=== PATIENT | male | born 1965 | race Caucasian/White ===

== ENCOUNTER → 2018-01-06 10:06 | Outpatient (CLI) | payer OTHER, SELFPAY ==
[2018-01-06 11:57] LABS: Add Manual Diff / Slide Review NO; Basophils Percent Auto 0.6 % (0-2); Hematocrit 44.7 % (41-53); Hemoglobin 15.4 g/dL (13.5-17.5); Lymphocytes Percent Auto 29.4 % (25-40); Mean Corpuscular HGB Conc 34.4 % (30-36); Mean Corpuscular Hemoglobin 30.9 PG (26-34); Mean Corpuscular Volume 89.9 fL (80-100); Neutrophils Absolute Auto 2800 /uL (3000-5900); Platelet Count 183 X10^3/uL (150-400); Red Blood Cell Count 4.98 X10^6/uL (4.5-5.9)
[2018-01-06 12:32] LABS: Alanine Aminotransferase 31 IU/L (21-72); Albumin 4.3 g/dL (3.5-5.0); Albumin Globulin Ratio 1.5 (1.0-2.8); Alkaline Phosphatase 76 U/L (38-126); Aspartate Aminotransferase 27 IU/L (17-59); BUN Creatinine Ratio 16.7 (6-22); Bilirubin Total 0.9 mg/dL (0.2-1.3); Blood Urea Nitrogen 15 mg/dL (9-20); Calcium 9.5 mg/dL (8.4-10.2); Carbon Dioxide 34 mmol/L (22-32); Chloride 100 mmol/L (98-107); Cholesterol 205 mg/dL (140-199); Estimated Glomerular Filt Rate > 60.0 mL/min (>60); Globulin 2.8 g/dL (1.7-4.1); Glucose 90 mg/dL (70-100); HDL Cholesterol 38 mg/dL (40-60); HEMOLYSIS < 15 (0-50); LDL Cholesterol Calculated 148 mg/dL (<100); Potassium 4.7 mmol/L (3.4-5.1); Sodium 143 mmol/L (137-145); Total Protein 7.1 g/dL (6.3-8.2); Triglycerides 94 mg/dL (35-150)
[2018-01-06 12:54] LABS: TSH w/ Reflex to FT4 2.05 uIU/mL (0.47-4.68)
== END ==
PROVIDERS: Family Provider Family Medicine; PCP Family Medicine; Visit Provider Family Medicine
DX: Z00.00 Encounter for general adult medical examination without abnormal findings (principal)
CPT/HCPCS: 36415; 80053; 80061; 84443; 85025

== ENCOUNTER → 2018-01-12 17:30 | Outpatient (CLI) | payer OTHER, SELFPAY | PROVIDERS: Family Provider Family Medicine; PCP Family Medicine; Visit Provider Family Medicine | DX: Z53.8 Procedure and treatment not carried out for other reasons (principal) ==

== ENCOUNTER 2018-03-16 12:57 | Day surgery (SDC) | payer OTHER, SELFPAY ==
--- NOTE | 2018-03-16 | PATH_ITS ---
[facility] Accession Number: [id number] . 01 Material submitted: . SIGMOID POLYP AT 25CM . 02 Diagnosis: Sigmoid Colon Polyp at 25 cm: Colonic mucosa with prominent benign lymphoid aggregate. Negative for serrated lesion, dysplasia or malignancy. Additional step sections examined. MRV/03/21/2018 . 02 Electronically signed: . Trip Tejada MD, PhD, Pathologist NPI- [id number] . 01 Gross description: . SIGMOID POLYP AT 25CM: Received in formalin are multiple fragment(s) of mendenhall, soft tissue measuring 0.1 x 0.1 x 0.1 cm in aggregate submitted entirely in 1 cassette(s) /CKI /CKI . 02 Pathologist provided ICD-10: K63.5 . 02 CPT . 571775 Specimen Comment: A duplicate report has been generated due to demographic updates. Performed at: 01 [facility] [address] [facility], [place], [place] [id number] MD Jeremiah Louis MD Phone: [phone] Performed at: [facility] [address] [place], [place] [id number] MD Clifford Espino MD Phone: [phone]
[2018-03-16 13:42] VITALS: BP 120/75; PULSE 63; RESP 16; TEMP 36.8; O2SAT 96; BMI 26.6
[2018-03-16] MEDS: SODIUM CHLORIDE 0.9% 1,000 ML 200 ML IV (13:55)
--- NOTE | 2018-03-16 14:33 | PM.HP.1 ---
History of Present Illness Date Patient Seen: 03/16/18 Time Patient Seen: 14:33 Chief complaint: colonoscopy [id number] Narrative: 52-year-old male who presents for colorectal screening. He has no history of any such examination. On further history today denies any gastrointestinal symptoms. No nausea, vomiting, abdominal pain, loss of appetite, unexplained weight loss, change in bowel habits, diarrhea, constipation, melena, hematochezia, or bright red blood per rectum. Patient History Medical History Anxiety (Chronic ~1984) GERD (gastroesophageal reflux disease) (Chronic ~1989) History of recurrent ear infection (Chronic ~2007) Recurrent sinusitis (Chronic ~2007) Chicken pox (Resolved ~1984) Surgical History Anesthesia (Resolved) History of tooth extraction (Resolved ~2007) Surgical procedure planned (Resolved ~1989) History of third molar tooth extraction (~1993) Status post arthroscopy (~2015) Status post arthroscopy (~2009) Family & Social History Family History: Reviewed 03/16/18 by Andrews Vo MD Social History: household members friend(s) Tobacco & Substance use: Smoking Status Never smoker Meds Home Medications Medication Instructions Recorded Confirmed Type duloxetine [Cymbalta] #0 11/08/16 History terbinafine HCl [Lamisil AT] 0 TOPICAL BID #24 gm 05/18/17 Rx Allergies Allergy/AdvReac Type Severity Reaction Status Date / Time No Known Drug Allergies Allergy Unverified 01/12/18 09:18 Review of Systems Review of Systems All systems reviewed & are unremarkable except as noted in HPI and below Exam Vital Signs (past 8 hours): - 03/16/18 13:42 Temperature 98.3 F Pulse Rate 63 Respiratory Rate 16 Blood Pressure 120/75 Pulse Oximetry 96 Oxygen Delivery Method Room Air Narrative Exam Narrative: Well-nourished well-developed male in no acute distress. Alert oriented x3 Sclera nonicteric Chest clear to auscultation bilaterally with regular rate and rhythm. No murmurs, gallops, rubs Abdomen is soft, nondistended, nontender Extremities show no clubbing, cyanosis, or edema Objective Labs Labs: No recent laboratory or radiographic studies for review Assessment & Plan Plan: Assessment/Plan Narrative: 52-year-old male who requires colorectal screening by age criteria. Colonoscopy is recommended. Technical details of the procedure were discussed. Risks, benefits, alternatives were explained. Risks including but not limited to sedation, aspiration, bleeding, pain, missed lesion, incomplete examination, need for further radiographic studies, colonic perforation, need for major abdominal surgery, and all attendant risks of major surgery were discussed in detail. All questions were answered to his satisfaction, and he voiced understanding. Consent was placed on the chart. We will proceed as above.
--- NOTE | 2018-03-16 14:36 | P.HP_ITS ---
History of Present Illness Date Patient Seen: 03/16/18 Time Patient Seen: 14:33 Chief complaint: colonoscopy [id number] Narrative: 52-year-old male who presents for colorectal screening. He has no history of any such examination. On further history today denies any gastrointestinal symptoms. No nausea, vomiting, abdominal pain, loss of appetite, unexplained weight loss, change in bowel habits, diarrhea, constipation, melena, hematochezia, or bright red blood per rectum. Patient History Medical History Anxiety (Chronic ~1984) GERD (gastroesophageal reflux disease) (Chronic ~1989) History of recurrent ear infection (Chronic ~2007) Recurrent sinusitis (Chronic ~2007) Chicken pox (Resolved ~1984) Surgical History Anesthesia (Resolved) History of tooth extraction (Resolved ~2007) Surgical procedure planned (Resolved ~1989) History of third molar tooth extraction (~1993) Status post arthroscopy (~2015) Status post arthroscopy (~2009) Family & Social History Family History: Reviewed 03/16/18 by Andrews Vo MD Social History: household members friend(s) Tobacco & Substance use: Smoking Status Never smoker Meds Home Medications Medication Instructions Recorded Confirmed Type duloxetine [Cymbalta] #0 11/08/16 History terbinafine HCl [Lamisil AT] 0 TOPICAL BID #24 gm 05/18/17 Rx Allergies Allergy/AdvReac Type Severity Reaction Status Date / Time No Known Drug Allergies Allergy Unverified 01/12/18 09:18 Review of Systems Review of Systems All systems reviewed & are unremarkable except as noted in HPI and below Exam Vital Signs (past 8 hours): - 03/16/18 13:42 Temperature 98.3 F Pulse Rate 63 Respiratory Rate 16 Blood Pressure 120/75 Pulse Oximetry 96 Oxygen Delivery Method Room Air Narrative Exam Narrative: Well-nourished well-developed male in no acute distress. Alert oriented x3 Sclera nonicteric Chest clear to auscultation bilaterally with regular rate and rhythm. No murmurs , gallops, rubs Abdomen is soft, nondistended, nontender Extremities show no clubbing, cyanosis, or edema Objective Labs Labs: No recent laboratory or radiographic studies for review Assessment & Plan Plan: Assessment/Plan Narrative: 52-year-old male who requires colorectal screening by age criteria. Colonoscopy is recommended. Technical details of the procedure were discussed. Risks, benefits, alternatives were explained. Risks including but not limited to sedation, aspiration, bleeding, pain, missed lesion, incomplete examination, need for further radiographic studies, colonic perforation, need for major abdominal surgery, and all attendant risks of major surgery were discussed in detail. All questions were answered to his satisfaction, and he voiced understanding. Consent was placed on the chart. We will proceed as above.
--- NOTE | 2018-03-16 14:36 | PM.PREOP ---
Pre-operative Note Interval Note Pre-op Check: Yes History & Physical Reviewed by Physician, Yes Exam Performed and Yes History & Physical exam performed today by Physician Changes: No H&P completed within 30 days and has changed as indicated here:: Patient seen and examined today. History and physical examination documented and placed on the chart today. Proceed with colonoscopy today as planned. ASA Class (for procedural sedation): I
[2018-03-16] MEDS: MIDAZOLAM 5 MG/5 ML VIAL IV (14:57)
[2018-03-16] MEDS: fentaNYL 250 MCG/5 ML INJ IV (14:58)
--- NOTE | 2018-03-16 15:00 | PM.OP.ENDO ---
Operative Date/Time/Diagnoses Date of procedure: 03/16/18 Time of procedure: 15:00 Pre-op diagnosis: Colorectal screening Post-op diagnosis: other (Sigmoid colon polyp and diverticulosis) Procedure & Clinicians Study performed: 1. Sedation per surgeon 2. Colonoscopy with cold forceps polypectomy Same procedure as scheduled: Yes Indications: 52-year-old male who presents for colorectal screening. Colonoscopy is recommended. Surgeon: Andrews Vo Procedure Notes SCOAP/Timeout: Yes Procedure in detail: After obtaining informed consent, the patient was brought to the GI suite and placed in the left lateral decubitus position on the examination table. After placement of appropriate monitors, the patient was given incremental doses of Versed and Fentanyl until an appropriate level of sedation was achieved. A time out was held per SCOAP protocol. A digital rectal examination was performed and did not reveal any masses or obstructing lesions. The colonoscope was gently passed into the patient's anus and the entire colon navigated to the level of the cecum with minimal difficulty. Once in the cecum, the scope was withdrawn being sure to go before and beyond all mucosal folds and prominences and get an excellent examination. The findings are noted above. At the level of the rectal vault, the scope was retroflexed and the internal anal canal was examined. The scope was straightened and air aspirated from the colon. The instrument was removed from the patient's body and the procedure was concluded. The patient was allowed to awaken from sedation without difficulty and taken to the post-anesthesia care unit in good condition. Scope withdrawal time: 9:45 min Sedation minutes: 21 Findings: diverticulosis and polyp Specimen(s): other (Sigmoid colon polyp at 25 cm) Complications: none Recommendations: Colonscopy in 5 years (Pending biopsy results), High fiber diet and Will call with biopsy results Plan for aftercare: 1. Discharge to home Follow up: as needed Disposition: PACU
[2018-03-16 15:14] VITALS: BP 124/79; PULSE 66; RESP 12; TEMP 36.4; O2SAT 94
== END 2018-03-16 15:45 ==
LOC: ENDO 13:00
PROVIDERS: Family Provider Family Medicine; PCP Family Medicine; Visit Provider Surgery
PROC: 0DJD8ZZ Inspection of Lower Intestinal Tract, Via Natural or Artificial Opening Endoscopic (ICD-10-PCS; CPT 45378; principal; 2018-03-16 15:00)
DX: Z12.11 Encounter for screening for malignant neoplasm of colon (principal); K57.30 Diverticulosis of large intestine without perforation or abscess without bleeding; D12.5 Benign neoplasm of sigmoid colon; F41.9 Anxiety disorder, unspecified; K63.5 Polyp of colon
CPT/HCPCS: 45380; 99152; J2250; J3010

== ENCOUNTER → 2020-02-26 08:34 | Outpatient (CLI) | payer OTHER, SELFPAY ==
[2020-02-26 09:39] LABS: Add Manual Diff / Slide Review NO; Basophils Absolute Auto 0 /uL (0-100); Basophils Percent Auto 0.7 % (0-2); Eosinophils Absolute Auto 200 /uL (0-450); Eosinophils Percent Auto 3.9 % (2-4); Hematocrit 44.2 % (41-53); Hemoglobin 15.2 g/dL (13.5-17.5); Lymphocytes Absolute Auto 1300 /uL (1100-4500); Mean Corpuscular HGB Conc 34.4 % (30-36); Mean Corpuscular Hemoglobin 30.9 PG (26-34); Mean Corpuscular Volume 89.7 fL (80-100); Monocytes Absolute Auto 500 /uL (0-900); Monocytes Percent Auto 9.6 % (3-14); Neutrophils Absolute Auto 3000 /uL (1500-7000); Neutrophils Percent Auto 59.8 % (50-75); Platelet Count 188 X10^3/uL (150-400); Red Blood Cell Count 4.92 X10^6/uL (4.5-5.9); Red Cell Distribution Width 13.2 % (11.6-14.8); White Blood Cell Count 4.9 X10^3/uL (4.5-11.0)
[2020-02-26 10:17] LABS: Alanine Aminotransferase 23 IU/L (<50); Albumin 4.1 g/dL (3.5-5.0); Albumin Globulin Ratio 1.6 (1.0-2.8); Alkaline Phosphatase 74 U/L (38-126); Aspartate Aminotransferase 25 IU/L (17-59); BUN Creatinine Ratio 15.4 (6-22); Bilirubin Total 1.1 mg/dL (0.2-1.3); Blood Urea Nitrogen 14 mg/dL (9-20); Calcium 9.2 mg/dL (8.4-10.2); Carbon Dioxide 30 mmol/L (22-32); Chloride 103 mmol/L (98-107); Cholesterol 178 mg/dL (140-199); Estimated Glomerular Filt Rate > 60.0 mL/min (>60); Globulin 2.6 g/dL (1.7-4.1); Glucose 101 mg/dL (70-100); HDL Cholesterol 30 mg/dL (40-60); HEMOLYSIS < 15 (0-50); LDL Cholesterol Calculated 128 mg/dL (<100); Potassium 4.3 mmol/L (3.4-5.1); Sodium 138 mmol/L (137-145); Total Protein 6.7 g/dL (6.3-8.2); Triglycerides 100 mg/dL (35-150)
[2020-02-26 10:47] LABS: Prostate Specific Antigen Scrn 1.28 ng/mL (0.1-4.0)
[2020-02-26 19:23] LABS: HIV 1 & 2 Ab/Ag 4th Gen Combo NEGATIVE (NEGATIVE)
[2020-02-27 09:50] LABS: HBsAg Screen Negative (Negative); Hepatitis A Antibody IgM Negative (Negative); Hepatitis B Core Antibody IgM Negative (Negative); Hepatitis C Antibody <0.1 s/co ratio (0.0-0.9)
[2020-02-28 17:36] LABS: HSV I/II IgM <0.91 Ratio (0.00-0.90)
== END ==
PROVIDERS: Family Provider Family Medicine; PCP Family Medicine; Referring Provider Family Medicine; Visit Provider Family Medicine
DX: E78.5 Hyperlipidemia, unspecified (principal)
CPT/HCPCS: 36415; 80053; 80061; 80074; 85025; 86694; 87389; G0103